=== PATIENT | female | born 1980 | race Hispanic/Latino ===

== ENCOUNTER 2021-04-15 16:37 | Emergency (ER) | payer OTHER ==
[~2021-04-15] VITALS: Ht 154.9 cm; Wt 72.6 kg
[2021-04-15 17:23] VITALS: BP 119/68
[2021-04-15] MEDS ORDERED: ALBUHFA IH (18:27)
== END 2021-04-15 18:52 | disposition home or self-care (01) ==
LOC: EDH 16:37
DX: B34.9 Viral infection, unspecified (principal); R06.02 Shortness of breath; Z20.822 Contact with and (suspected) exposure to COVID-19; Z88.2 Allergy status to sulfonamides; Z88.8 Allergy status to other drugs, medicaments and biological substances
CPT/HCPCS: 71045; 81025; 87635; 87804 ×2; 99284; C9803

== ENCOUNTER 2022-08-15 14:22 | Emergency (ER) | payer OTHER ==
[~2022-08-15] VITALS: Ht 154.9 cm; Wt 77.1 kg
[~2022-08-15 14:22] MED LIST: ALBUHFA IH
[2022-08-15 15:14] LABS: APPEARANCE,URINE CLEAR (CLEAR); BILIRUBIN,URINE NEGATIVE (NEGATIVE); COLOR,URINE LIGHT-YELLOW (YELLOW); GLUCOSE, URINE (UA) NEGATIVE (NEGATIVE); KETONES,URINE NEGATIVE (NEGATIVE); LEUKOCYTE ESTERASE ,URINE NEGATIVE Leu/uL (NEGATIVE); NITRATE,URINE NEGATIVE (NEGATIVE); OCCULT BLOOD,URINE NEGATIVE (NEGATIVE); PROTEIN,URINE 10 mg/dL (NEGATIVE); UROBILINOGEN,URINE 0.2 mg/dL (0.2-1.0)
[2022-08-15 15:18] LABS: HCG,QUALITATIVE URINE NEGATIVE (NEGATIVE)
[2022-08-15 15:40] LABS: MUCUS,URINE RARE LPF (None Seen); SQUAMOUS EPITHELIAL CELL,UR RARE /HPF (0-2); WBC,URINE 0-1 /HPF (0-1)
[2022-08-15] MEDS ORDERED: IBUP-2070 PO (16:27)
[2022-08-15] MEDS ORDERED: BENZ-39 PO (16:27)
[2022-08-15] MEDS ORDERED: OSEL75 PO (16:27)
[2022-08-15] MEDS ORDERED: ONDA4TAB10 PO (16:27)
[2022-08-15] MEDS ORDERED: IBUPROFEN 600 MG TABLET PO ONE (16:30)
[2022-08-15] MEDS ORDERED: BENZONATATE 100 MG CAPSULE PO SCH (16:30)
[2022-08-15] MEDS ORDERED: ONDANSETRON ODT 4MG TAB SL ONE (16:30)
[2022-08-15 16:58] VITALS: BP 132/78
== END 2022-08-15 16:59 | disposition home or self-care (01) ==
LOC: EDH 14:22
DX: J10.1 Influenza due to other identified influenza virus with other respiratory manifestations (principal); Z20.822 Contact with and (suspected) exposure to COVID-19; Z88.1 Allergy status to other antibiotic agents; Z88.2 Allergy status to sulfonamides; Z79.1 Long term (current) use of non-steroidal anti-inflammatories (NSAID)
CPT/HCPCS: 71045; 81001; 81025; 87635; 87804; 87880; C9803

== ENCOUNTER 2024-09-13 11:50 | Emergency (ER) | payer SELFPAY ==
[~2024-09-13] VITALS: Ht 154.9 cm; Wt 76.2 kg
[~2024-09-13 11:50] MED LIST changes: +BENZ-39 PO; +IBUP-2070 PO; +ONDA-243 PO; +OSEL75 PO
[2024-09-13 12:21] LABS: BASOPHILS # (AUTO) 0.12 K/uL (0.00-0.20); BASOPHILS % (AUTO) 1.5 % (0.0-5.0); EOSINOPHILS # (AUTO) 0.27 K/uL (0.00-0.70); EOSINOPHILS % (AUTO) 3.4 % (0.0-8.0); HEMATOCRIT 33.4 % (36-48); IMMATURE GRANULOCYTE ABSOLUTE 0.03 K/uL (0-1); LYMPHOCYTES # (AUTO) 2.1 K/uL (1.0-4.8); LYMPHOCYTES % (AUTO) 26.4 % (21.0-51.0); MEAN CORPUSCULAR HEMOGLOBIN 20.7 pg (27.0-33.0); MEAN CORPUSCULAR VOLUME 71.4 fL (79-99); MONOCYTES # (AUTO) 0.5 K/uL (0.1-1.0); MONOCYTES % (AUTO) 6.9 % (3.0-13.0); NEUTROPHILS # (AUTO) 4.8 K/uL (1.8-7.7); NEUTROPHILS % (AUTO) 61.4 % (40.0-77.0); PLATELET COUNT (AUTO) 370 K/uL (130-400); RED BLOOD CELL COUNT(AUTO) 4.68 MIL/uL (4.00-5.50); RED CELL DISTRIBUTION WIDTH 18.4 % (11.0-15.5); WHITE BLOOD COUNT (AUTO) 7.9 K/uL (4.8-10.8)
--- NOTE | 2024-09-13 12:21 | HMCIMG ---
CHEST 1VW REASON: CHEST PAIN COMPARISON: 08/15/2022 FINDINGS: Single view of the chest was obtained. Lungs are clear. Heart size is normal. There is no pulmonary vascular congestion. Mediastinum and bony thorax appear unremarkable. IMPRESSION: 1. Normal single view chest x-ray.
[2024-09-13 12:27] LABS: CREATININE 0.8 mg/dL (0.5-1.0); POTASSIUM 4.2 mmol/L (3.5-5.1)
[2024-09-13 12:57] LABS: B-TYPE NATRIURETIC PEPTIDE 57 pg/mL (0-100)
[2024-09-13] MEDS: 0.9%NACL 1000ML 1,000 ML IV ONE (13:50)
--- NOTE | 2024-09-13 14:30 | ERN ---
General Chief Complaint: Chest Pain Stated Complaint: chest pain Time Seen by MD: 11:54 Time Seen by Midlevel: 11:54 Source: patient History of Present Illness Initial Comments Patient is a 43-year-old female with a past medical history of anemia presenting to the emergency department with chest tightness that started after waking up this morning. She does report mild shortness of breath and dizziness on exertion. Denies any other symptoms at this time. Allergies: Coded Allergies: sulfamethoxazole (Unverified Allergy, Unknown, 04/15/21) trimethoprim (Unverified Allergy, Unknown, 04/15/21) Home Meds Active Scripts Ibuprofen (Ibuprofen) 600 Mg Tablet, 600 MG PO Q6H PRN for PAIN, #15 TAB Prov:[facility] 08/15/22 Ondansetron (Ondansetron Odt) 4 Mg Tab.rapdis, 4 MG PO TID PRN for NAUSEA/VOMITING, #10 TAB Prov:[facility] 08/15/22 Benzonatate (Tessalon Perles) 100 Mg Cap, 100 MG PO TID PRN for COUGH/COLD SYMPTOMS, #15 CAP Prov:[facility] 08/15/22 Oseltamivir Phosphate (Tamiflu) 75 Mg Cap, 75 MG PO BID, #10 CAP Prov:[facility] 08/15/22 Albuterol Sulfate (Ventolin Hfa/Proventil Hfa/Proair Hfa) 90 Mcg/Puff Puff, 2 PUFF IH Q4H, #1 INH Prov:MIR BOTELLO 04/15/21 Past Medical History Past Medical History: Anemia Past Surgical History: Family History Family History: Negative Social History Social History: Negative ROS Dictation CONSTITUTIONAL: Negative except for HPI HEAD/FACE: Negative except for HPI EENT: Negative except for HPI RESPIRATORY: Negative except for HPI GASTROINTESTINAL/ABDOMINAL: Negative except for HPI GENITOURINARY: Negative except for HPI MUSCULOSKELETAL: Negative except for HPI INTEGUMENTARY: Negative except for HPI NEUROLOGICAL/PSYCH: Negative except for HPI HEMATOLOGIC/LYMPHATIC: Negative except for HPI All Systems Negative, Except as noted above. 13 point review of systems assessed and all negative except for above. Physical Exam Physical Exam Dictation Vital Signs reviewed General Appearance: Alert, oriented x 3, no acute distress, well developed, nourished. Head and Face: non-traumatic. Eyes: PERRL, pink conjunctivas, eyelid no trauma, anterior chamber with arcus senilis. Ears: Pinnas intact and no signs of trauma or erythema ear canals clear and no discharge TM no erythema Nose: No discharge, no bleeding. Oropharynx: Mouth normal, tongue pink, pharynx clear,no erythema, tonsils no exudates, no abscesses noted, mucous membrane moist Neck: Supple, non-tender, no thyromegaly, no masses, no JVD, no bruits Breast:Deferred Chest:No tenderness, no crepitus, no paradoxical movement, no retractions Lungs:Clear, well-ventilated, symmetric, no rales, no wheezing, no rhonchi, no stridor, good breath sounds bilaterally Heart: Regular rate, regular rhythm, no murmur, no gallops Vascular: no peripheral edema, Abdomen: Soft, positive bowel sounds, nondistended, no guarding, nontender, no rebound, no masses no hepatomegaly, no splenomegaly, no Deleon's sign, no hernias. Rectal: Deferred Genital: Deferred Neurological: Normal speech, motor function intact, sensory function intact Musculoskeletal: Neck nontender, full range of motion, back nontender, full range of motion, Extremities: nontender, full range of motion Skin: Color pink, dry, no turgor, no rash, no lacerations, no abrasions, no contusions. Lymphatic: Deferred Results Laboratory and Microbiology Lab and Micro Result Laboratory Tests Test 09/13/24 11:58 09/13/24 12:20 White Blood Count 7.9 K/uL (4.8-10.8) Red Blood Count 4.68 MIL/uL (4.00-5.50) Hemoglobin 9.7 g/dL (12.0-16.0) L Hematocrit 33.4 % (36-48) L Mean Corpuscular Volume 71.4 fL (79-99) L Mean Corpuscular Hemoglobin 20.7 pg (27.0-33.0) L Mean Corpuscular Hemoglobin Concent 29.0 g/dL (32.0-36.0) L Red Cell Distribution Width 18.4 % (11.0-15.5) H Platelet Count 370 K/uL (130-400) Mean Platelet Volume 10.3 fL (7.5-10.5) Immature Granulocyte % (Auto) 0.4 % (0-1) Neutrophils (%) (Auto) 61.4 % (40.0-77.0) Lymphocytes (%) (Auto) 26.4 % (21.0-51.0) Monocytes (%) (Auto) 6.9 % (3.0-13.0) Eosinophils (%) (Auto) 3.4 % (0.0-8.0) Basophils (%) (Auto) 1.5 % (0.0-5.0) Neutrophils # (Auto) 4.8 K/uL (1.8-7.7) Lymphocytes # (Auto) 2.1 K/uL (1.0-4.8) Monocytes # (Auto) 0.5 K/uL (0.1-1.0) Eosinophils # (Auto) 0.27 K/uL (0.00-0.70) Basophils # (Auto) 0.12 K/uL (0.00-0.20) Absolute Immature Granulocyte (auto 0.03 K/uL (0-1) Nucleated Red Blood Cells 0.0 % (0.0-0.19) Red Blood Cell Morphology See comments Sodium Level 138 mmol/L (136-145) Potassium Level 4.2 mmol/L (3.5-5.1) Chloride Level 105 mmol/L (101-111) Carbon Dioxide Level 25 mmol/L (21-32) Blood Urea Nitrogen 14 mg/dL (7-18) Creatinine 0.8 mg/dL (0.5-1.0) Glomerular Filtration Rate Calc 93 mL/min (>90) Random Glucose 94 mg/dL (70-105) Total Calcium 8.1 mg/dL (8.5-10.1) L Total Creatine Kinase 90 U/L (21-232) Troponin I High Sensitivity < 4 ng/L (4-50) L B-Type Natriuretic Peptide 57 pg/mL (0-100) Troponin I < 0.05 ng/mL (0.00-0.05) Labs Reviewed?: Yes MDM MDM: Patient is a 43-year-old female with a past medical history of anemia presenting to the emergency department with chest tightness that started after waking up this morning. She does report mild shortness of breath and dizziness on exertion. Denies any other symptoms at this time. On physical examination patient is in no acute distress. The remainder of her physical examination is unremarkable. Her CBC shows hemoglobin of nine. The remainder of her chemistries unremarkable. Cardiac enzymes are negative. EKG does not show any evidence of a IN. patient is still symptomatic in the emergency department. Plan was to admit the patient for symptomatic anemia however she was refusing admission and would like to be discharged home. Risks versus benefits were discussed with the patient and she understands and will be discharged home. Differential diagnosis: Electrolyte abnormality, ACS, pneumonia, anemia There are no social concerns with this patient. Prescription drug management Prescriptions will include: Medical management and examination interpretation discussions were had by me with other qualified healthcare professionals as indicated for the patient's care. ED Course Orders Procedure Category Date Status Time Vital Signs Per CPOE 09/13/24 Transmitted Routine 11:51 B-Type Natriuretic LAB 09/13/24 Complete Peptide 11:51 Chest 1vw RAD 09/13/24 Resulted 11:51 12 Lead Ekg Tracing- EKG 09/13/24 Logged Technical 11:51 Oxygen By Nc/Pulse Ox CPOE 09/13/24 Transmitted 11:51 Maintain Iv CPOE 09/13/24 Transmitted 11:51 Iv Insertion CPOE 09/13/24 Transmitted 11:51 Cardiac Monitoring CPOE 09/13/24 Transmitted 11:51 Pulse Oximetry With CPOE 09/13/24 Transmitted Vs And Prn 11:51 Cbc With Differential LAB 09/13/24 Complete 11:51 Activity: Br W/Brp CPOE 09/13/24 Transmitted With Assist 11:51 Creatine Kinase, Total LAB 09/13/24 Complete 11:51 Troponin Poc Order LAB 09/13/24 Complete Only 11:51 Bedside Troponin-I LAB.ER 09/13/24 Complete (Poc) 11:51 Basic Metabolic Panel LAB 09/13/24 Complete 11:51 Troponin I High LAB 09/13/24 Complete Sensitivity 11:54 0.9%Nacl 1000ml (Ns PHA 09/13/24 Complete 1000ml) 13:00 Current Medications Medications (Trade) Dose Ordered Sig/Etta Route PRN Reason Start Time Stop Time Status Last Admin Dose Admin Sodium Chloride 1,000 ml @ 0 mls/hr ONCE ONCE IV 09/13/24 13:00 09/13/24 13:01 DC 09/13/24 13:50 Vital Signs Date Time Temp Pulse Resp B/P (MAP) Pulse Ox O2 Delivery O2 Flow Rate FiO2 09/13/24 14:35 97.9 80 18 147/71 99 Room Air* 0 21 09/13/24 11:56 97.9 82 18 151/86 99 Room Air* 0 21 DX & DISP Disposition: Discharge Departure Impression: Primary Impression: Anemia Condition: Stable Additional Instructions: Your hemoglobin today was 9.7. The remainder of your blood work is unremarkable. Your cardiac enzymes are negative. Your EKG does not show any evidence of a heart attack. Follow up with your primary care doctor in 2-3 days for repeat evaluation. If you develop any new or worsening symptoms please report to the ER for further evaluation. Referrals: SELF,REFERRAL (PCP) I have reviewed the case, and I agree with, Diagnosis and Plan I performed the substantive portion of the visit. I have reviewed and personally made and approve the management plan that is documented in the note b y myself or the NICANOR. I acknowledge for responsibility for the patient's management plan. AUBREY BRICE Sep 13, 2024 14:30
[2024-09-13 14:35] VITALS: BP 147/71; PULSE 80; RESP 18; TEMP 97.9; O2SAT 99
--- NOTE | 2024-09-14 19:52 | EKG ---
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
== END 2024-09-13 15:02 | disposition home or self-care (01) ==
LOC: EDH 11:50
DX: D64.9 Anemia, unspecified (principal); Z88.1 Allergy status to other antibiotic agents; Z88.2 Allergy status to sulfonamides
CPT/HCPCS: 99285; 96360; 71045; 82550; 84484 ×2; 80048; 83880; 85025; 36415; 93005; J7030